=== PATIENT | male | born 1985 | race Caucasian/White ===

== ENCOUNTER 2017-09-28 21:34 | Emergency (ER) | payer BC ==
[2017-09-28] MEDS ORDERED: Proparacaine 0.5% Ophth Soln 15 ML Bottle EYELF SCH (21:45)
[2017-09-28] MEDS ORDERED: Proparacaine 0.5% Ophth Soln 15 ML Bottle ONE (21:45)
[2017-09-28] MEDS ORDERED: Erythromycin Base 0.5% Ophth Oint 1 GM Tube EYEBOTH ONE (21:52)
[2017-09-28] MEDS ORDERED: Diphtheria,Pertussis(Acell),Tetanus Vaccine 0.5 ML Syringe IM ONE (21:54)
--- NOTE | 2017-09-28 21:55 | EDM.PDOC ---
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 Past medical history: As per history of present illness and as reviewed below otherwise noncontributory. Surgical history: As per history of present illness and as reviewed below otherwise noncontributory. Social history: No reported history of drug or alcohol abuse. Family history: As per history of present illness and as reviewed below otherwise noncontributory. Physical exam: HEENT: Atraumatic, normocephalic, pupils reactive, negative for conjunctival pallor or scleral icterus, patient has injected left conjunctiva foreign body search including lid eversion was negative corneal staining was remarkable for a corneal abrasion is relatively superficial at the 10 o'clock position anterior chamber is clear mucous membranes moist, throat clear, neck supple, nontender, trachea midline. Lungs: Clear to auscultation, breath sounds equal bilaterally, chest nontender. Heart: S1S2, regular, negative for clicks, rubs, or JVD. Abdomen: Soft, nondistended, nontender. Negative for masses or hepatosplenomegaly. Negative for costovertebral tenderness. Pelvis: Stable nontender. Genitourinary: Deferred. Rectal: Deferred. Extremities: Atraumatic, negative for cords or calf pain. Neurovascular unremarkable. Neuro: Awake, alert, oriented. Cranial nerves II through XII unremarkable. Cerebellum unremarkable. Motor and sensory unremarkable throughout. Exam nonfocal. Diagnostics: Corneal staining Therapeutics: Irrigation proparacaine ophthalmic drops erythromycin ophthalmic ointment Impression: #1 corneal abrasion left eye Definitive disposition and diagnosis as appropriate pending reevaluation and review of above. - Related Data Allergies Allergy/AdvReac Type Severity Reaction Status Date / Time No Known Allergies Allergy Verified 09/28/17 21:46 Home Meds: Home Meds . [No Known Home Meds] 09/28/17 [History] ED ROS GENERAL - Review of Systems Review Of Systems: ROS reveals no pertinent complaints other than HPI. ED EXAM GENERAL W FULL EYE - Physical Exam Exam: See Below (See dictation) Course - Orders/Labs/Meds Orders: Active Orders 24 hr Category Date Time Status Proparacaine [Proparacaine 0.5% Ophth Soln] Med 09/28/17 21:45 Active 2 ml EYELF STAT Medication Orders Proparacaine HCl (Proparacaine 0.5% Ophth Soln) 2 ml EYELF STAT KAI Meds: Medications Generic Name Dose Route Start Last Admin Trade Name Freq PRN Reason Stop Dose Admin Proparacaine HCl 2 ml 09/28/17 21:45 Proparacaine 0.5% Ophth Soln EYELF STAT KAI Discontinued Medications Generic Name Dose Route Start Last Admin Trade Name Freq PRN Reason Stop Dose Admin Proparacaine HCl Confirm 09/28/17 21:45 Proparacaine 0.5% Ophth Soln Administered 09/28/17 21:46 Dose 15 ml .ROUTE .STK-MED ONE Departure - Departure Time of Disposition: 21:53 Disposition: Home, Self-Care 01 Condition: Good Clinical Impression: Corneal abrasion - Discharge Information Additional Instructions: The following information is given to patients seen in the emergency department who are being discharged to home. This information is to outline your options for follow-up care. We provide all patients seen in our emergency department with a follow-up referral. The need for follow-up, as well as the timing and circumstances, are variable depending upon the specifics of your emergency department visit. If you don't have a primary care physician on staff, we will provide you with a referral. We always advise you to contact your personal physician following an emergency department visit to inform them of the circumstance of the visit and for follow-up with them and/or the need for any referrals to a consulting specialist. The emergency department will also refer you to a specialist when appropriate. This referral assures that you have the opportunity for followup care with a specialist. All of these measure are taken in an effort to provide you with optimal care, which includes your followup. Under all circumstances we always encourage you to contact your private physician who remains a resource for coordinating your care. When calling for followup care, please make the office aware that this follow-up is from your recent emergency room visit. If for any reason you are refused follow-up, please contact the emergency department at and asked to speak to the emergency department charge nurse. [facility] [address] [id number] Erythromycin ophthalmic ointment follow-up primary medical doctor/ophthalmology as needed as discussed return as needed as discussed - My Orders Last 24 Hours: My Active Orders 09/28/17 21:45 Proparacaine [Proparacaine 0.5% Ophth Soln] 2 ml EYELF STAT - Assessment/Plan Last 24 Hours: My Active Orders 09/28/17 21:45 Proparacaine [Proparacaine 0.5% Ophth Soln] 2 ml EYELF STAT
== END 2017-09-28 22:16 | disposition home or self-care (01) ==
LOC: MW.ED 21:34
DX: S05.02XA Injury of conjunctiva and corneal abrasion without foreign body, left eye, initial encounter (principal); Z23 Encounter for immunization; X58.XXXA Exposure to other specified factors, initial encounter
CPT/HCPCS: 90471; 90715; 99283; A9270